=== PATIENT | male | born 1940 | race Two or more races ===

== ENCOUNTER 2022-08-30 13:37 | Inpatient (IN) | payer MEDICARE, OTHER ==
[~2022-08-30] VITALS: Ht 160 cm; Wt 67.6 kg
[2022-08-30 17:45] VITALS: BP 122/69
--- NOTE | 2022-08-30 17:50 | NUR ---
PATIENT ADMITTED FROM [facility] WITH A DX.PNA. HTN. DEMENTIA. DM. VIA AMBULANCE ACCOMPANIED BY 2 EMT'S. WITH 02 VIA SIMPLE MASK 7 LITERS PER MINUTE SATING 95%. RIVER EXPEDITION GUIDE SINUS RHYTHM 63. IV ON LEFT AC G20. PATIENT WITH EPISODES OF ATTEMPTING TO REMOVE LINES AND MASK. ALERT TO NAME ONLY. DOCTOR KAYLEIGH MASON INFORMED PATIENT ARRIVED. HOB ELEVATED, BED IN LOW POSITION, BILATERAL HALF SIDE RAILS UP X2. BED EXIT ALARM ON, LOCKED, CALL LIGHT IN REACH. SAFETY PRECAUTIONS MAINTAINED. Addendum: 08/30/22 at 1953 by JAD ROD RN RIGHT EYE WITH REDNESS.
--- NOTE | 2022-08-30 18:00 | NUR ---
DOCTOR KAYLEIGH MASON AT BEDSIDE INFORMED PATIENT HAS EPISODE OF REMOVING LINES AND MASK, AND THAT PATIENT HAS HX OF REMOVING LINES AND MASK PER EMT REPORT.
[2022-08-30] MEDS ORDERED: MAG30ORA PO (18:20)
[2022-08-30] MEDS ORDERED: MULT-594 PO (18:20)
[2022-08-30] MEDS ORDERED: GLUC1KIT IM (18:20)
[2022-08-30] MEDS ORDERED: DIVA125C2 PO (18:20)
[2022-08-30] MEDS ORDERED: LEVO50TA8 PO (18:20)
[2022-08-30] MEDS ORDERED: INSU100V11 SQ (18:20)
[2022-08-30] MEDS ORDERED: LOSA25TA27 PO (18:20)
[2022-08-30] MEDS ORDERED: MAGN400O6 PO (18:20)
[2022-08-30] MEDS ORDERED: INSU100V7 SQ (18:20)
[2022-08-30] MEDS ORDERED: QUET25TA PO (18:20)
[2022-08-30] MEDS ORDERED: MAG HYDROX/AL HYDROX/SIMETH 30 ML UDC PO PRN (18:30)
[2022-08-30] MEDS ORDERED: Z GUARD REMEDY 4 OZ OINT TP PRN (18:30)
[2022-08-30] MEDS ORDERED: ACETAMINOPHEN 325 MG TABLET PO PRN (18:30)
[2022-08-30] MEDS ORDERED: MAGNESIUM HYDROXIDE 30 ML UDC PO PRN (18:30)
[2022-08-30] MEDS ORDERED: DEXTROSE 50%-WATER 50 ML DISP.SYRIN IV PRN (18:30)
[2022-08-30] MEDS ORDERED: ONDANSETRON HCL/PF 4 MG/2 ML VIAL IVP PRN (18:30)
[2022-08-30 18:44] LABS: BASOPHILS % (AUTO) 0.3 % (0.0-2.0); EOSINOPHILS % (AUTO) 1.8 % (0.0-6.0); HEMATOCRIT 29 % (39-51); HEMOGLOBIN 9.5 g/dL (13.5-17.5); LYMPHOCYTES % (AUTO) 8.5 % (20.0-44.0); MEAN CORPUSCULAR HGB CONC 33 g/dl (31.0-36.0); MEAN CORPUSCULAR VOLUME 83 fL (80-96); MONOCYTES # (AUTO) 0.8 K/uL (0.1-1.30); MONOCYTES % (AUTO) 7.1 % (2.0-12.0); NEUTROPHILS # (AUTO) 9.8 K/uL (1.8-8.9); NEUTROPHILS % (AUTO) 82.3 % (43.0-81.0); PLATELET COUNT (AUTO) 534 K/uL (150-450); RED BLOOD CELL COUNT(AUTO) 3.53 MIL/uL (4.5-6.0); WHITE BLOOD COUNT (AUTO) 11.9 K/uL (4.3-11.0)
[2022-08-30 19:11] LABS: BILIRUBIN,TOTAL 0.2 mg/dL (0.2-1.0); CALCIUM, SERUM 8.6 mg/dL (8.5-10.1); CREATININE 0.8 mg/dL (0.6-1.3); POTASSIUM 4.7 mmol/L (3.5-5.1); TOTAL PROTEIN, SERUM 7.5 g/dL (6.4-8.2)
[2022-08-30] MEDS: ENOXAPARIN SODIUM 40 MG/0.4 ML DISP.SYRIN SQ SCH (19:13)
[2022-08-30 20:00] VITALS: BP 139/78
--- NOTE | 2022-08-30 20:00 | NUR ---
TD RN NOTE RECEIVED PTS IN BED LETHARGIC A/OX1 ON 8LITERS OF O2 VIA FACEMASK ,HOB ELEVATED SATING 94% ON TELE MONITOR SR, BBB WITH ST ELEVATION , PTS ON BILATERAL SOFT WRIST RESTRAINT TO PREVENT PULLING INVASIVE TUBING ,ON IV HEPLOCK WITH LEFT AC G#20 INTACT AND PATENT , IVF OF NS AT 75CC/HR INFUSING WELL . ON IV ATB GIVEN ORDERED WITH NO ASE NOTED .PTS IS NPO STATUS , KEPT PTS CLEAN DRY AND COMFORTABLE , ALL NEEDS ATTENDED TOO, CALL LIGHT WITHIN REACH . WILL CONTINUE TO MONITOR PTS.
[2022-08-30] MEDS: IV NS 0.9% 1,000 ML IV PRN (20:49)
[2022-08-30] MEDS: VANCOMYCIN 1.25 GM in IV D5W 250 ML IV SCH (20:49)
--- NOTE | 2022-08-30 21:00 | NUR ---
BRUCE RN NOTES RT AT BEDSIDE O2 TITRATED TO 4LITERS VIA NC SATING 97% V/S STABLE AFEBRILE .
[2022-08-30] MEDS: QUETIAPINE FUMARATE 25 MG TABLET PO SCH (22:00)
--- NOTE | 2022-08-30 22:00 | NUR ---
BRUCE RN NOTES BLOOD SUGAR AT 2200HRS IS 205 MG/DL 5 UNITS LANTUS GIVEN ORDERED AND 4 UNITS OF REGULAR INSULIN GIVEN PER SLIDING SCALE .
[2022-08-30] MEDS: INSULIN GLARGINE, 100 UNIT/ML CARTRIDGE SQ SCH (22:51)
[2022-08-30] MEDS: INSULIN REGULAR, HUMAN 100 UNIT/ML 3 ML VIAL SQ PRN (22:52)
[2022-08-30] MEDS: CEFEPIME 2 GM in IV D5W 100 ML IV SCH (22:55)
[2022-08-30] MEDS: BLOOD SUGAR DIAGNOSTIC 1 EACH STRIP IN SCH (22:56)
[2022-08-31] VITALS: BP 133/69
[2022-08-31 04:00] VITALS: BP 115/79
[2022-08-31] MEDS: CEFEPIME 2 GM in IV D5W 100 ML IV SCH ×2 (05:12→16:17)
--- NOTE | 2022-08-31 05:38 | NUR ---
RN TD NOTES PATIENT REMAIN IN BED AWAKE A/OX1 0N 4 LITERS OF 02 VIA NC. NO SOB NO DISTRESS NOTED SATING AT 96%. .IV ACCESS GARY G#20 RUNNING NS AT 75MLS/HR. BILATERAL SOFT WRIST RESTRAINTS TO PREVENT PULLING INVASIVE TUBING, HOB ELEVATED AT 40 DEGREES, BED LOCKED IN LOWEST POSITION. CALL LIGHT WITHIN REACH. WILL ENDORSE TO RN DAY SHIFT FOR CONTINUITY OF CARE.
[2022-08-31 06:45] LABS: BASOPHILS % (AUTO) 0.3 % (0.0-2.0); EOSINOPHILS % (AUTO) 2.4 % (0.0-6.0); HEMATOCRIT 29 % (39-51); HEMOGLOBIN 9.5 g/dL (13.5-17.5); LYMPHOCYTES % (AUTO) 9.8 % (20.0-44.0); MEAN CORPUSCULAR HGB CONC 33 g/dl (31.0-36.0); MEAN CORPUSCULAR VOLUME 84 fL (80-96); MONOCYTES # (AUTO) 0.8 K/uL (0.1-1.30); MONOCYTES % (AUTO) 8.1 % (2.0-12.0); NEUTROPHILS # (AUTO) 8.1 K/uL (1.8-8.9); NEUTROPHILS % (AUTO) 79.4 % (43.0-81.0); PLATELET COUNT (AUTO) 520 K/uL (150-450); RED BLOOD CELL COUNT(AUTO) 3.49 MIL/uL (4.5-6.0); WHITE BLOOD COUNT (AUTO) 10.2 K/uL (4.3-11.0)
[2022-08-31 07:19] LABS: CALCIUM, SERUM 8.8 mg/dL (8.5-10.1); CREATININE 0.7 mg/dL (0.6-1.3); MAGNESIUM 2.4 mg/dL (1.8-2.4); PHOSPHORUS 2.6 mg/dL (2.5-4.9); POTASSIUM 4.4 mmol/L (3.5-5.1)
[2022-08-31 07:20] LABS: THYROID STIMULATING HORMONE 2.665 uIU/mL (0.358-3.74)
[2022-08-31] MEDS ORDERED: GLUCAGON,HUMAN RECOMBINANT 1 MG/VIAL VIAL IM PRN (07:30)
[2022-08-31 08:00] VITALS: BP 142/78
--- NOTE | 2022-08-31 08:01 | NUR ---
BRUCE RN NOTES PATIENT REMAIN IN BED AWAKE A/OX1 0N 5L LITERS OF 02 VIA NC.SATURATION 95%WITH SLIGHT SOB NOTED ,SATING AT 95%. .IV ACCESS GARY G#20 RUNNING NS AT 75MLS/HR. BILATERAL SOFT WRIST RESTRAINTS TO PREVENT PULLING INVASIVE TUBING, HOB ELEVATED AT 40 DEGREES, BED LOCKED IN LOWEST POSITION. CALL LIGHT WITHIN REACH. ON TELE MONITOR HR 68 WITH BBB, WILL CONT TO MONITOR
[2022-08-31] MEDS: PANTOPRAZOLE 40 MG VIAL IV SCH (08:42)
[2022-08-31] MEDS: LOSARTAN POTASSIUM 25 MG TABLET PO SCH (08:42)
[2022-08-31] MEDS: DIVALPROEX SODIUM 125 MG CAP.SPRINK PO SCH ×3 (08:42→16:17)
[2022-08-31] MEDS: LEVOTHYROXINE SODIUM 50 MCG TABLET PO SCH (08:43)
[2022-08-31] MEDS: MULTIVITAMINS,THERAGRAN 1 UDTAB TABLET PO SCH (08:44)
[2022-08-31] MEDS: BLOOD SUGAR DIAGNOSTIC 1 EACH STRIP IN SCH ×4 (08:44→22:29)
--- NOTE | 2022-08-31 09:23 | NUR ---
BROOMCORN GRADER NOTE DID NURSING SWALLOW EVAL AT BEDSIDE,ABLE TO SWALLOW SMALL AMOUNT APPLE SOUSE , ABLE TO TALE PO PILLS WILL F\U Addendum: 08/31/22 at 0925 by RUPINDER ROWE RN ABLE TO TAKE PO MEDS
--- NOTE | 2022-08-31 09:30 | NUR ---
BRUCE RN NOTE NEW HL ON RT HAND INSERTED WITH GOOD BLOOD RETURN
[2022-08-31 12:00] VITALS: BP 138/69
[2022-08-31] MEDS: INSULIN REGULAR, HUMAN 100 UNIT/ML 3 ML VIAL SQ PRN ×2 (12:41→17:14)
--- NOTE | 2022-08-31 12:42 | NUR ---
FARM APPRAISER NOTE SEEN BY HARLAN OROURKE RN BANKING SERVICES OFFICER AWARE THAT ON IVF NS AT 75 ML PER HOUR ,START TO COUGH DID NOT GIVE PO MEDS ,AWAITING FOR ST EVAL TOMORROW AND ABLE TO SWALLOW PO PILLS IN AM
--- NOTE | 2022-08-31 13:29 | NUR ---
BRUCE RN NOTE UA COLLECTED ORDERED, KEEP CLEAN DRY
[2022-08-31] MEDS: IV NS 0.9% 1,000 ML IV PRN (14:01)
[2022-08-31 16:00] VITALS: BP 134/71
[2022-08-31 16:52] LABS: BILIRUBIN,URINE NEGATIVE (NEGATIVE); COLOR,URINE YELLOW (YELLOW); LEUKOCYTE ESTERASE ,URINE NEGATIVE (NEGATIVE); NITRITE, URINE NEGATIVE (NEGATIVE); PROTEIN,URINE 1+ mg/dl (NEGATIVE); UGLUCOSE NEGATIVE (NEGATIVE); UROBILINOGEN,URINE 0.2 EU/dL (0.2)
--- NOTE | 2022-08-31 17:00 | NUR ---
senior telecommunications technician note unable to remove soft restrain. still at high karina for falls and remove all lines, will cont to monitor closely
[2022-08-31] MEDS: ENOXAPARIN SODIUM 40 MG/0.4 ML DISP.SYRIN SQ SCH (17:29)
[2022-08-31 17:54] LABS: BACTERIA,URINE Few /HPF (None Seen); SQUAMOUS EPITHELIAL CELL,UR Few /HPF (None Seen); WBC,URINE NONE SEEN /HPF (0-3)
--- NOTE | 2022-08-31 18:39 | NUR ---
telephone supervisor note patient in bed still restless, trying to remove all lines with soft restrain as ordered with condom cath with yellow color urine, rt hand hl intact and flushed well , on ivf as ordered, bed in lowest and locked position , family at bedside , bed in lowest and locked position will cont to monitor closely , on 3l nc no sob noted at this time,
[2022-08-31 20:00] VITALS: BP 124/60
[2022-08-31] MEDS: VANCOMYCIN 1.25 GM in IV D5W 250 ML IV SCH (20:00)
--- NOTE | 2022-08-31 21:00 | NUR ---
CRULLER MAKER MACHINE OPENING NOTES RECEIVED PATIENT IS ON BED, A/O X 1 CONFUSED, ON MODERATE HIGH BACK REST POSITION, HOOKED TO OXYGEN VIA NASAL CANNULA AT 3 LPM SATURATING WELL, BREATH EVENLY AND UNLABORED. WITH IV ACCESS AT RIGHT HAND #20G WITH NS AT 75ML/HR INFUSING WELL NO SWELLING OR INFILTRATION NOTED. PATIENT IS ON NPO FOR SWALLOW EVALUATION. ON BILATERAL SOFT RESTRAINT,FOR ASPIRATION PRECAUTIONS SUCTION SECRETIONS NEEDED, KEPT BED ON LOWER LOCKED POSITION, KEPT SIDE RAILS UP X 3 ALL THE TIME, KEPT CALL LIGHT WITHIN AT REACH, PM CARE RENDERED, TURNED PATIENT, NO PAIN OR DISCOMFORT NOTED. WILL CONTINUE TO MONITOR FOR ASHLEY.
[2022-08-31] MEDS: INSULIN GLARGINE, 100 UNIT/ML CARTRIDGE SQ SCH (22:00)
[2022-08-31] MEDS: QUETIAPINE FUMARATE 25 MG TABLET PO SCH (22:00)
[2022-09-01] VITALS: BP 115/56
[2022-09-01] MEDS: IV NS 0.9% 1,000 ML IV PRN ×2 (03:44→16:17)
[2022-09-01 04:00] VITALS: BP 140/60
[2022-09-01] MEDS: CEFEPIME 2 GM in IV D5W 100 ML IV SCH ×2 (04:31→17:06)
[2022-09-01 05:53] LABS: BASOPHILS % (AUTO) 0.3 % (0.0-2.0); EOSINOPHILS % (AUTO) 3.2 % (0.0-6.0); HEMATOCRIT 30 % (39-51); HEMOGLOBIN 9.8 g/dL (13.5-17.5); LYMPHOCYTES # (AUTO) 0.8 K/uL (0.8-4.8); LYMPHOCYTES % (AUTO) 10.9 % (20.0-44.0); MEAN CORPUSCULAR HGB CONC 33 g/dl (31.0-36.0); MEAN CORPUSCULAR VOLUME 85 fL (80-96); MONOCYTES # (AUTO) 0.7 K/uL (0.1-1.30); MONOCYTES % (AUTO) 8.9 % (2.0-12.0); NEUTROPHILS # (AUTO) 5.8 K/uL (1.8-8.9); NEUTROPHILS % (AUTO) 76.7 % (43.0-81.0); PLATELET COUNT (AUTO) 528 K/uL (150-450); RED BLOOD CELL COUNT(AUTO) 3.53 MIL/uL (4.5-6.0); WHITE BLOOD COUNT (AUTO) 7.5 K/uL (4.3-11.0)
[2022-09-01 06:13] LABS: CALCIUM, SERUM 8.8 mg/dL (8.5-10.1); CREATININE 0.7 mg/dL (0.6-1.3); MAGNESIUM 2.2 mg/dL (1.8-2.4); POTASSIUM 4.3 mmol/L (3.5-5.1)
--- NOTE | 2022-09-01 06:49 | NUR ---
RN CLOSING NOTES PATIENT IS ON BED, A/O X 1 CONFUSED, ON MODERATE HIGH BACK REST POSITION, HOOKED TO OXYGEN VIA NASAL CANNULA AT 3 LPM SATURATING WELL, BREATH EVENLY AND UNLABORED. WITH IV ACCESS AT RIGHT HAND #20G WITH NS AT 75ML/HR INFUSING WELL NO SWELLING OR INFILTRATION NOTED. ALL IV MEDICATIONS GIVEN, PATIENT IS ON NPO FOR SWALLOW EVALUATION. ON BILATERAL SOFT RESTRAINT WITH ORDERED RENEWED. FOR ASPIRATION PRECAUTIONS SUCTION SECRETIONS NEEDED, KEPT BED ON LOWER LOCKED POSITION, KEPT SIDE RAILS UP X 3 ALL THE TIME, KEPT CALL LIGHT WITHIN AT REACH, PM CARE RENDERED, TURNED PATIENT, NO PAIN OR DISCOMFORT NOTED. WILL ENDORSED TO NEXT SHIFT FOR ASHLEY.
--- NOTE | 2022-09-01 07:30 | NUR ---
RESEARCH AND DEVELOPMENT CHEMIST AM NOTES PATIENT IN BED, A/O X 1 CONFUSED, ON MODERATE HIGH BACK REST POSITION, O2 AT 3L NASA CANULA, O2 SAT 100%. RESPIRAITON UNLABORED, SINUS JACK HR 59 ON MONITOR, DENIES CHEST PAIN/DISCOMFORT. WITH IV ACCESS AT RIGHT HAND #20G WITH NS AT 75ML/HR INFUSING WELL, SITE CLEAR. PATIENT IS ON NPO FOR SWALLOW EVALUATION. ON BILATERAL SOFT RESTRAINT, RELEASED AND CHECKED FOR CIRCULATION THEN Q 2 HOURS. ASPIRATION PRECAUTIONS SUCTION SECRETIONS NEEDED, KEPT BED ON LOWER LOCKED POSITION, KEPT SIDE RAILS UP X 3 ALL THE TIME, KEPT CALL LIGHT WITHIN AT REACH, WILL TURN AND REPOSITIONQ 2HOURS. WILL CONTINUE TO MONITOR.
[2022-09-01 08:00] VITALS: BP 152/56
[2022-09-01] MEDS: BLOOD SUGAR DIAGNOSTIC 1 EACH STRIP IN SCH ×4 (08:14→21:03)
[2022-09-01] MEDS: LOSARTAN POTASSIUM 25 MG TABLET PO SCH (08:23)
[2022-09-01] MEDS: PANTOPRAZOLE 40 MG VIAL IV SCH (08:23)
[2022-09-01] MEDS: DIVALPROEX SODIUM 125 MG CAP.SPRINK PO SCH ×3 (08:24→17:06)
[2022-09-01] MEDS: MULTIVITAMINS,THERAGRAN 1 UDTAB TABLET PO SCH (08:24)
[2022-09-01] MEDS: LEVOTHYROXINE SODIUM 50 MCG TABLET PO SCH (08:25)
[2022-09-01] MEDS: INSULIN REGULAR, HUMAN 100 UNIT/ML 3 ML VIAL SQ PRN ×3 (08:27→21:15)
--- NOTE | 2022-09-01 09:30 | NUR ---
RN NOTES DUE MEDS GIVEN
[2022-09-01 12:00] VITALS: BP 123/64
[2022-09-01 16:00] VITALS: BP 139/74
[2022-09-01] MEDS: ENOXAPARIN SODIUM 40 MG/0.4 ML DISP.SYRIN SQ SCH (18:05)
--- NOTE | 2022-09-01 19:17 | NUR ---
DRIVERS' CASH CLERK CLOSING NOTES PATIENT IN BED, A/O X 1 CONFUSED, ON MODERATE HIGH BACK REST POSITION, O2 AT 3L NASAL CANULA, O2 SAT 100%. RESPIRATION UNLABORED, SB TO SR ON MONITOR, DENIES CHEST PAIN/DISCOMFORT. WITH IV ACCESS AT RIGHT HAND #20G WITH NS AT 75ML/HR INFUSING WELL, SITE CLEAR. PATIENT IS ON PUREED/THIN LIQUID DIET. PASSED SWALLOW EVALUATION. ON BILATERAL SOFT RESTRAINT, RELEASED AND CHECKED FOR CIRCULATION THEN Q 2 HOURS. ASPIRATION PRECAUTIONS SUCTION SECRETIONS NEEDED, KEPT BED ON LOWER LOCKED POSITION, KEPT SIDE RAILS UP X 3 ALL THE TIME, KEPT CALL LIGHT WITHIN AT REACH, TURNED AND REPOSITIONED Q 2HOURS. WILL ENDORSE TO NEXT SHOFT FOR ASHLEY.
[2022-09-01 20:00] VITALS: BP 147/77
[2022-09-01] MEDS: VANCOMYCIN 1.25 GM in IV D5W 250 ML IV SCH (20:24)
[2022-09-01] MEDS: QUETIAPINE FUMARATE 25 MG TABLET PO SCH (21:06)
[2022-09-01] MEDS: INSULIN GLARGINE, 100 UNIT/ML CARTRIDGE SQ SCH (22:06)
[2022-09-02] VITALS: BP 104/62
--- NOTE | 2022-09-02 00:54 | NUR ---
RESTRAINTS RENEWED Patient in bed, confused. Bilateral soft wrist restraints in place. Patient still attempted pulling line/tubing by himself, unable to dc sandi soft restraints at this time.
[2022-09-02 04:00] VITALS: BP 115/56
[2022-09-02] MEDS: CEFEPIME 2 GM in IV D5W 100 ML IV SCH ×2 (05:26→16:12)
--- NOTE | 2022-09-02 05:47 | NUR ---
END OF SHIFT REPORT Patient in bed, Alert Oriented x1 to self only. Confused, restless at times. Lon soft wrist restraints in place. Sinus Kayode in the air sampling and monitoring, HR 55. Oxygen sat low 90's in 3L NC, no respiratory distress during the shift. Right hand IV access intact, IVF continuous. Given IV abx with no adverse side effect. Plan for continue abx. IVF, Oxygen support. Fall/seizure precaution maintained. Will endorse to oncoming RN.
[2022-09-02 06:50] LABS: BASOPHILS % (AUTO) 0.7 % (0.0-2.0); EOSINOPHILS % (AUTO) 5.9 % (0.0-6.0); HEMATOCRIT 29 % (39-51); HEMOGLOBIN 9.6 g/dL (13.5-17.5); LYMPHOCYTES % (AUTO) 20.2 % (20.0-44.0); MEAN CORPUSCULAR HGB CONC 33 g/dl (31.0-36.0); MEAN CORPUSCULAR VOLUME 83 fL (80-96); MONOCYTES # (AUTO) 0.6 K/uL (0.1-1.30); MONOCYTES % (AUTO) 12.5 % (2.0-12.0); NEUTROPHILS # (AUTO) 3.1 K/uL (1.8-8.9); NEUTROPHILS % (AUTO) 60.7 % (43.0-81.0); PLATELET COUNT (AUTO) 546 K/uL (150-450); RED BLOOD CELL COUNT(AUTO) 3.54 MIL/uL (4.5-6.0); WHITE BLOOD COUNT (AUTO) 5.1 K/uL (4.3-11.0)
[2022-09-02 07:18] LABS: CALCIUM, SERUM 8.9 mg/dL (8.5-10.1); CREATININE 0.7 mg/dL (0.6-1.3); MAGNESIUM 2.4 mg/dL (1.8-2.4); PHOSPHORUS 3.2 mg/dL (2.5-4.9); POTASSIUM 4.2 mmol/L (3.5-5.1)
[2022-09-02] MEDS: LEVOTHYROXINE SODIUM 50 MCG TABLET PO SCH (07:29)
--- NOTE | 2022-09-02 07:30 | NUR ---
RN NOTE RECEIVED PAITENT IN BED RESTING ALERT ORIENTED X0 CONFUSED,VERBALLY RESPONSIVE ON 3L OXYGEN VIA NASAL CANNULA O2:94% IV ACCESS ON RIGHT HAND INTACT PATENT ON IV HYDRATION NS 75CC/HR SOFT BILATERAL WRIST RESTRAIN IN PLACE WILL CHECK EVERY 15 MINS FOR SKIN BREAKDOWN AND CIRCULATION,SAFETY MEASURE IMPLEMENT BED IN LOW POSITION AND LOCKED,KEEP HEAD OF THE BED ELEVATED CONTINUE TO MONITOR.
[2022-09-02] MEDS: BLOOD SUGAR DIAGNOSTIC 1 EACH STRIP IN SCH ×4 (07:36→22:18)
[2022-09-02 08:00] VITALS: BP 140/56
[2022-09-02] MEDS: DIVALPROEX SODIUM 125 MG CAP.SPRINK PO SCH ×3 (08:54→16:30)
[2022-09-02] MEDS: PANTOPRAZOLE 40 MG VIAL IV SCH (08:54)
[2022-09-02] MEDS: LOSARTAN POTASSIUM 25 MG TABLET PO SCH (08:55)
[2022-09-02] MEDS: MULTIVITAMINS,THERAGRAN 1 UDTAB TABLET PO SCH (08:55)
[2022-09-02] MEDS: INSULIN REGULAR, HUMAN 100 UNIT/ML 3 ML VIAL SQ PRN ×4 (09:09→22:20)
[2022-09-02] MEDS: IV NS 0.9% 1,000 ML IV PRN (10:30)
--- NOTE | 2022-09-02 11:45 | NUR ---
WOUND CARE CONSULT: PT PRESENTS WITH SOME SCARRING TO LOWER BUTTOCKS AND DISCOLORATION TO LOWER LEGS AND TOENAILS, PRESENT ON ADMISSION. DISCUSSED SKIN PROTECTION WITH NURSING STAFF. MD IN AGREEMENT WITH PLAN OF CARE.
[2022-09-02 12:00] VITALS: BP 125/60
[2022-09-02 16:00] VITALS: BP 131/63
[2022-09-02] MEDS: ENOXAPARIN SODIUM 40 MG/0.4 ML DISP.SYRIN SQ SCH (17:44)
--- NOTE | 2022-09-02 18:43 | NUR ---
RN NOTE PATIENT REMAINS ALERT ORIENTED X0 NO SOB NOT ACUTE DISTRESS NOTED ALL DUE MEDS GIVEN MD ORDERED KEPT CLEAN AND DRY ALL THE TIME,KEPT COMFORTABLE ENDORSE NEXT COMING SHIFT FOR CONTINUATION OF CARE.
--- NOTE | 2022-09-02 19:30 | NUR ---
noc rn opening Received patient in bed. a/ox1, confused with bilateral soft wrist restraints. no s/s of apparent distress on room air. not exhibiting pain via flacc. reading sr with 62 bpm. IV NS running @75mls/hr. safety in place-- bed in lowest, locked position, rails up X4, bed alarm in place. will continue with patient's plan of care.
[2022-09-02] MEDS: VANCOMYCIN 1.25 GM in IV D5W 250 ML IV SCH (19:59)
[2022-09-02 20:00] VITALS: BP 124/67
[2022-09-02] MEDS: QUETIAPINE FUMARATE 25 MG TABLET PO SCH (22:00)
--- NOTE | 2022-09-02 22:04 | NUR ---
noc rn note- possible omnocell discrepancy Dropped 25mg tab of Quetiapine that is not to be found. I wasted in the omnicell and pulled out a new tab of Quetiapine 25mg.
[2022-09-02] MEDS: INSULIN GLARGINE, 100 UNIT/ML CARTRIDGE SQ SCH (22:19)
--- NOTE | 2022-09-02 22:23 | NUR ---
noc rn note Patient blood sugar 157, given Lantus 5 units and no coverage given per clinical assessment. will monitor.
[2022-09-03] VITALS: BP 144/60
[2022-09-03] MEDS: IV NS 0.9% 1,000 ML IV PRN (01:00)
--- NOTE | 2022-09-03 02:54 | NUR ---
MRSA SWAB OBTAINED AT THIS TIME.
[2022-09-03 04:00] VITALS: BP 156/72
[2022-09-03] MEDS: CEFEPIME 2 GM in IV D5W 100 ML IV SCH ×2 (04:51→16:06)
[2022-09-03 06:37] LABS: CALCIUM, SERUM 8.2 mg/dL (8.5-10.1); CARBON DIOXIDE 25 mmol/L (21-32); CHLORIDE 105 mmol/L (98-107); CREATININE 0.8 mg/dL (0.6-1.3); GLUCOSE 271 mg/dL (74-106); SODIUM SERUM 134 mmol/L (136-145); UREA NITROGEN, BLOOD 8 mg/dL (7-18)
[2022-09-03] MEDS: BLOOD SUGAR DIAGNOSTIC 1 EACH STRIP IN SCH ×3 (06:37→17:52)
[2022-09-03] MEDS: INSULIN REGULAR, HUMAN 100 UNIT/ML 3 ML VIAL SQ PRN ×3 (06:37→18:37)
--- NOTE | 2022-09-03 06:47 | NUR ---
noc rn closing note Patient in bed with eyes closed, easy to arouse bilateral soft wrist restraints in place. no s/s of apparent distress on 2lpm of o2 via nc. not exhibiting pain via flacc. IV NS running @75mls/hr. reading sb on the tele monitor with bbb 52bpm. all needs attended. all scheduled medications administered. safety kept in place throughout shift. will endorse to morning shift rn for continuity of patient care.
--- NOTE | 2022-09-03 06:51 | NUR ---
noc rn note blood sugar 118 Hg/dL. no coverage needed.
--- NOTE | 2022-09-03 07:34 | NUR ---
CHRONIC DISEASE EPIDEMIOLOGIST OPENING NOTE RECEIVED PATIENT IN BED, A/O X 1 CONFUSED, N, O2 AT 3L NASA CANULA, O2 SAT ABOVE 92%%. RESPIRAITON UNLABORED, SINUS JACK HR 54 ON MONITOR WITH BBB, WITH IV ACCESS AT RIGHT HAND #20G WITH NS AT 75ML/HR INFUSING WELL, SITE CLEAR. ON BILATERAL SOFT RESTRAINT, NO SKIN OR CIRCULATION ISSUES NOTED AT THIS TIME.ALL SAFETY MEASURES IN PLACE, , KEPT BED ON LOWEST POSITION AND LOCKED. SIDE RAILS UP X 2 CALL LIGHT WITHIN AT REACH,BED ALARM ON
[2022-09-03 08:00] VITALS: BP 133/71
[2022-09-03] MEDS: LEVOTHYROXINE SODIUM 50 MCG TABLET PO SCH (08:35)
[2022-09-03] MEDS: MULTIVITAMINS,THERAGRAN 1 UDTAB TABLET PO SCH (08:35)
[2022-09-03] MEDS: LOSARTAN POTASSIUM 25 MG TABLET PO SCH (08:36)
[2022-09-03] MEDS: DIVALPROEX SODIUM 125 MG CAP.SPRINK PO SCH ×3 (08:40→16:26)
[2022-09-03] MEDS ORDERED: PANTOPRAZOLE 40 MG/PACK PACK PO SCH (09:00)
[2022-09-03 12:00] VITALS: BP 133/71
[2022-09-03] MEDS ORDERED: CEFE2PIG2 IV (13:05)
[2022-09-03] MEDS ORDERED: VANC1.5P36 IV (13:06)
--- NOTE | 2022-09-03 14:46 | NUR ---
RN NOTE REPORT GIVEN TO SANDRA AT [facility] [phone]
[2022-09-03 16:00] VITALS: BP 156/76
[2022-09-03] MEDS: ENOXAPARIN SODIUM 40 MG/0.4 ML DISP.SYRIN SQ SCH (18:33)
--- NOTE | 2022-09-03 19:39 | NUR ---
CREAM CHEESE MAKER NOTE PT LEFT IN STABLE CONDITION. PT ALERT AND ORIENTED X2, TURKMEN SPEAKING, BEDBOUND. KEPT IV IN DUE TO PT RECEIVING ANTIBOTICS. REMOVED TELE MONITOR BOX. GAVE REPORT TO AMBULANCE. WENT OVER DISCHARGE INSTRUCTIONS. VERBALIZED UNDERSTANDING. TAKEN TO [facility] VIA AMBULANCE. PT HAD NO BELONGINGS AT THIS TIME
[2022-09-03] MEDS ORDERED: VANCOMYCIN 1.5 GM in IV D5W 500ml IV SCH (20:00)
== END 2022-09-03 22:45 | DRG 177 ==
LOC: TELE1 17:25 → TELE-TD 18:49 → TELE1 08-31 14:13
PROVIDERS: ADMIT Nurse Practitioner Acute Care; ATTEND Nurse Practitioner Acute Care
DX: J15.6 Pneumonia due to other Gram-negative bacteria (principal); G93.41 Metabolic encephalopathy; J96.01 Acute respiratory failure with hypoxia; R53.2 Functional quadriplegia; N17.0 Acute kidney failure with tubular necrosis; F03.93 Unspecified dementia, unspecified severity, with mood disturbance; F03.94 Unspecified dementia, unspecified severity, with anxiety; D63.8 Anemia in other chronic diseases classified elsewhere; I10 Essential (primary) hypertension; G40.909 Epilepsy, unspecified, not intractable, without status epilepticus; E03.9 Hypothyroidism, unspecified; R13.10 Dysphagia, unspecified; F20.9 Schizophrenia, unspecified; N40.0 Benign prostatic hyperplasia without lower urinary tract symptoms; F32.9 Major depressive disorder, single episode, unspecified; F41.9 Anxiety disorder, unspecified; K21.9 Gastro-esophageal reflux disease without esophagitis; E11.9 Type 2 diabetes mellitus without complications; Z86.79 Personal history of other diseases of the circulatory system; E86.0 Dehydration; F09 Unspecified mental disorder due to known physiological condition; Y95 Nosocomial condition; Z20.822 Contact with and (suspected) exposure to COVID-19; Z78.1 Physical restraint status
CPT/HCPCS: 36415; 71045-TC; 80048-TC; 80053-TC; 80061-TC; 80202-TC; 81001; 82962-TC; 83735-TC; 84100-TC; 84443-TC; 85025-TC; 87040-TC; 87081-TC; 87086-TC; 92526; 92611-TC; A4349; C9113; G0378; J0692; J1650; J1815; J3370; J3490; J7030; J7060